=== PATIENT | female | born 1995 | race African-American/Black ===

== ENCOUNTER 2020-04-10 17:26 | Emergency (ER) | payer OTHER ==
[~2020-04-10] VITALS: Ht 158.8 cm; Wt 70.0 kg
[2020-04-10 17:28] VITALS: BP 103/35
--- NOTE | 2020-04-10 17:28 | NUR ---
ERMD AT BEDSIDE FOR EVALUATION.
[2020-04-10] MEDS ORDERED: SODIUM CHLORIDE 0.9% 1,000ML IVBOLUS ONE (17:30)
[2020-04-10] MEDS ORDERED: DEXAMETHASONE 4 MG/ML, 1ML IVPush ONE (17:30)
[2020-04-10] MEDS ORDERED: FAMOTIDINE 20 MG/2 ML IVPush ONE (17:30)
[2020-04-10] MEDS ORDERED: SODIUM CHLORIDE FLUSH 10ML SYR IVF ONE (17:30)
[2020-04-10] MEDS ORDERED: DEXAMETHASONE 4 MG/ML, 5ML ONE (17:40)
[2020-04-10] MEDS ORDERED: FAMOTIDINE 20 MG/2 ML ONE (17:42)
--- NOTE | 2020-04-10 17:51 | NUR ---
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 PER EMS PATIENT WAS ON HER WAY TO WORK AROUND 1500 AND WAS EATING [place], AND AROUND 1540 PATIENT STARTED ITCHING, HER HANDS AND FEET TURNED RED AND SHE HAD AN EPISODE OF DIARRHEA. PATIENT REPORTS FEELING SOB, DENIES VOMITING. PATIENT TOOK 50 MG BENADRYL AND ITCHING CONTINUED. NO THROAT SWELLING BUT PATIENT STATES SHE FEELS LIKE SOMETHING IS CAUGHT IN HER THROAT. 20 GAUGE IV STARTED RAC EN ROUTE, 250 mLS NS GIVEN AND 50 MG IV BENADRYL GIVEN BY EMS. PER EMS VITALS STABLE EN ROUTE. NADN, VSS, WARM BLANKET PROVIDED, CALL LIGHT WITHIN REACH.
--- NOTE | 2020-04-10 18:49 | NUR ---
PATIENT RESTING IN [facility], PATIENT STATES SHE IS FEELING "MUCH BETTER" THAN EARLIER, DENIES ITCHING, DENIES FEELING NAUSEATED.
--- NOTE | 2020-04-10 19:05 | NUR ---
Patient given discharge instructions and prescription and they have confirmed that they understand the instructions. Patient stable and ambulatory with steady gait from ED with friend at side. Friend is patient's ride home.
== END 2020-04-10 19:06 | disposition home or self-care (01) ==
LOC: ED 18:30
DX: J30.1 Allergic rhinitis due to pollen (principal); R10.9 Unspecified abdominal pain; R19.7 Diarrhea, unspecified
CPT/HCPCS: 96361; 96374; 96375; 99284; J1100; J7030